=== PATIENT | male | born 1985 | race African-American/Black ===

== ENCOUNTER 2016-12-20 19:07 | Emergency (ER) | payer OTHER ==
[~2016-12-20] VITALS: Ht 188 cm; Wt 83.9 kg
[2016-12-21] MEDS ORDERED: ETOMIDATE (2MG/ML) 20ML VIAL IV ONE ×2 (00:56→01:30)
[2016-12-21] MEDS ORDERED: ONDANSETRON HCL 4 MG/2 ML VIAL IV ONE (01:00)
[2016-12-21] MEDS ORDERED: HYDROmorphone HCL 2 MG/ML VL IV ONE ×2 (01:00→01:30)
[2016-12-21] MEDS ORDERED: HYDROmorphone HCL 2 MG/ML VL ONE (01:00)
[2016-12-21 01:09] VITALS: BP 138/69
== END 2016-12-21 03:31 | disposition home or self-care (01) ==
LOC: ER 19:16
DX: S43.005A Unspecified dislocation of left shoulder joint, initial encounter (principal); W19.XXXA Unspecified fall, initial encounter; Y93.89 Activity, other specified; Y99.8 Other external cause status; Y92.89 Other specified places as the place of occurrence of the external cause
CPT/HCPCS: 23650; 73020; 73030; 96374; 96375; 99152; 99285; J1170; J2405